=== PATIENT | female | born 1965 | race Hispanic/Latino ===

== ENCOUNTER 2024-12-02 02:12 | Inpatient (IN) | payer SELFPAY ==
[2024-12-02] VITALS (7 sets, daily range): BP systolic 136–168; BP diastolic 81–99; PULSE 73–105; RESP 15–18; TEMP 97.8–99.2; O2SAT 92–99
[~2024-12-02] VITALS: Ht 152.4 cm; Wt 104.3 kg
[2024-12-02] MEDS ORDERED: FAMOTIDINE 20 MG/2 ML VIAL IV ONE (02:43)
[2024-12-02] MEDS ORDERED: ONDANSETRON HCL INJ 2MG/ML 2ML 2 MG/ML VIAL ONE (02:43)
[2024-12-02] MEDS: ONDANSETRON HCL INJ 2MG/ML 2ML 2 MG/ML VIAL IV STA ×2 (02:53→03:24)
[2024-12-02] MEDS: FAMOTIDINE 20 MG/2 ML VIAL IV STA (02:58)
[2024-12-02] MEDS ORDERED: KETOROLAC TROMETHAMINE 30 MG/ML VIAL ONE (03:14)
[2024-12-02] MEDS ORDERED: Morphine 4mg INJECTION 4 MG/ML INJ IV PRN (03:30)
[2024-12-02] MEDS: KETOROLAC TROMETHAMINE 30 MG/ML VIAL IV STA (03:32)
[2024-12-02] MEDS: SODIUM CHLORIDE 0.9% 1000ML 1,000 ML IV ONE (03:44)
[2024-12-02] MEDS ORDERED: SODIUM CHLORIDE FLUSH 10 ML SYR INJ PRN (06:30)
[2024-12-02] MEDS ORDERED: DOCUSATE SODIUM 100 MG CAP PO PRN (08:45)
[2024-12-02] MEDS ORDERED: SIMETHICONE 80 MG CHEW PO PRN (08:45)
[2024-12-02] MEDS ORDERED: ALBUTEROL/IPRATROPIUM 3 ML NEB NEB PRN (08:45)
[2024-12-02] MEDS ORDERED: MELATONIN 3 MG TAB PO PRN (08:45)
[2024-12-02] MEDS: SENNOSIDES 8.6 MG TAB PO SCH (09:00)
[2024-12-02 09:36] LABS: BASOPHILS % 0.3 % (0.0-1.0); EOSINOPHILS % 0.4 % (0.0-6.0); HEMATOCRIT 41.6 % (34.2-44.1); HEMOGLOBIN 12.7 g/dL (12.0-16.0); LYMPHOCYTES # (AUTO) 2.1 (1.0-3.2); LYMPHOCYTES % 23.7 % (18.0-39.1); MEAN CORPUSCULAR HGB CONC 30.5 g/dL (31-35); MEAN CORPUSCULAR VOLUME 85.1 fL (81-99); MONOCYTES # (AUTO) 0.6 (0.2-0.8); MONOCYTES % 6.3 % (4.4-11.3); NEUTROPHILS # (AUTO) 6.2 (2.1-6.9); NEUTROPHILS % 69.1 % (38.7-80.0); PLATELET COUNT 238 x10e3/uL (140-360); RED BLOOD COUNT 4.89 x10e6/uL (3.6-5.1); RED CELL DISTRIBUTION WIDTH 13.3 % (11.7-14.4)
[2024-12-02 10:08] LABS: ALBUMIN 3.6 g/dL (3.5-5.0); ANION GAP 14.3 mmol/L (8-16); BILIRUBIN,DIRECT 0.2 mg/dL (0.0-0.5); BILIRUBIN,TOTAL 0.3 mg/dL (0.2-1.2); CALCIUM 9.4 mg/dL (8.4-10.2); CREATININE, SERUM 0.72 mg/dL (0.57-1.11); MAGNESIUM 1.7 MG/DL (1.3-2.1); PHOSPHORUS 4.1 MG/DL (2.3-4.7); POTASSIUM 4.3 mmol/L (3.5-5.1); TOTAL PROTEIN 7.1 g/dL (6.5-8.1)
[2024-12-02 10:17] LABS: CHOL/HDL RATIO 3.7 (3.0-3.6)
[2024-12-02] MEDS: SODIUM CHLORIDE 0.9% 1000ML 1,000 ML IV SCH (10:20)
[2024-12-02] MEDS: FAMOTIDINE 20 MG/2 ML VIAL IV SCH (10:20)
[2024-12-02] MEDS: Morphine 4mg INJECTION 4 MG/ML INJ IV PRN (12:09)
[2024-12-02] MEDS: LABETALOL HCL 5 MG/ML 20ML VIAL IV ONE (15:55)
[2024-12-02] MEDS: ONDANSETRON HCL INJ 2MG/ML 2ML 2 MG/ML VIAL IV PRN (17:43)
[2024-12-03 03:12] VITALS: BP 170/87; PULSE 102; RESP 18; TEMP 98.4; O2SAT 94
[2024-12-03] MEDS: METOPROLOL TARTRATE INJ 1 MG/ML VIAL IV PRN (03:53)
[2024-12-03 05:11] VITALS: BP 118/72; PULSE 90
[2024-12-03 08:35] VITALS: BP 137/90; PULSE 86; RESP 20; TEMP 98.6; O2SAT 95
[2024-12-03] MEDS ORDERED: METFORMIN HCL500 MG PO (13:46)
[2024-12-03] MEDS ORDERED: LIPITOR20 MG PO (13:46)
[2024-12-03] MEDS ORDERED: LISINOPRIL-HCT1 EACH (13:47)
[2024-12-03 16:20] VITALS: BP 174/90; PULSE 92; RESP 20; TEMP 99; O2SAT 95
[2024-12-03] MEDS: PROMETHAZINE 12.5MG/ NACL 0.9% 12.5 MG/50 ML BAG IV PRN (16:57)
[2024-12-03 20:00] VITALS: BP 174/90; PULSE 92; RESP 20; TEMP 99; O2SAT 95
[2024-12-04] VITALS (8 sets, daily range): BP systolic 115–148; BP diastolic 68–91; PULSE 79–94; RESP 17–19; TEMP 97.8–98.6; O2SAT 95–100
[2024-12-04 07:05] LABS: BASOPHILS # (AUTO) 0.1 (0.0-0.1); BASOPHILS % 0.6 % (0.0-1.0); EOSINOPHILS # (AUTO) 0.3 (0.0-0.4); EOSINOPHILS % 2.7 % (0.0-6.0); HEMATOCRIT 45.5 % (34.2-44.1); HEMOGLOBIN 13.7 g/dL (12.0-16.0); LYMPHOCYTES # (AUTO) 3.5 (1.0-3.2); LYMPHOCYTES % 32.6 % (18.0-39.1); MEAN CORPUSCULAR HEMOGLOBIN 25.6 pg (28-32); MEAN CORPUSCULAR HGB CONC 30.1 g/dL (31-35); MONOCYTES # (AUTO) 0.7 (0.2-0.8); MONOCYTES % 6.3 % (4.4-11.3); NEUTROPHILS # (AUTO) 6.2 (2.1-6.9); NEUTROPHILS % 57.6 % (38.7-80.0); PLATELET COUNT 259 x10e3/uL (140-360); RED BLOOD COUNT 5.35 x10e6/uL (3.6-5.1); RED CELL DISTRIBUTION WIDTH 13.4 % (11.7-14.4); WHITE BLOOD COUNT 10.72 x10e3/uL (4.8-10.8)
[2024-12-04 07:58] LABS: ALBUMIN 3.6 g/dL (3.5-5.0); ANION GAP 13.9 mmol/L (8-16); BILIRUBIN,TOTAL 0.5 mg/dL (0.2-1.2); CALCIUM 9.3 mg/dL (8.4-10.2); CREATININE, SERUM 0.77 mg/dL (0.57-1.11); POTASSIUM 3.9 mmol/L (3.5-5.1); TOTAL PROTEIN 7.3 g/dL (6.5-8.1)
[2024-12-05 00:59] VITALS: BP 109/59; PULSE 75; RESP 18; TEMP 98.3; O2SAT 98
[2024-12-05 04:32] VITALS: BP 121/66; PULSE 70; RESP 18; TEMP 97.9; O2SAT 100
[2024-12-05 08:31] VITALS: BP 121/66; PULSE 70; RESP 18; TEMP 97.9; O2SAT 100
[2024-12-05 08:49] VITALS: BP 131/78; PULSE 77; RESP 20; TEMP 97.9; O2SAT 100
[2024-12-05] MEDS ORDERED: SENOKOT8.6 MG PO (10:48)
[2024-12-05] MEDS ORDERED: TYLENOL325 MG PO (10:48)
[2024-12-05] MEDS ORDERED: CEPHALEXIN500 MG PO (10:48)
[2024-12-05] MEDS ORDERED: METRONIDAZOLE500 MG PO (10:48)
[2024-12-05] MEDS ORDERED: ONDANSETRON ODT4 MG PO (10:48)
[2024-12-05 13:05] VITALS: BP 127/78; PULSE 69; RESP 20; TEMP 99; O2SAT 96
== END 2024-12-05 14:25 | disposition home or self-care (01) | DRG 418 ==
LOC: FSED 03:10 → ERHOLD 06:23 → OBSVTOIN 08:45 → MED/SURG3 16:16
PROVIDERS: ADMIT Internal Medicine; ATTEND Internal Medicine
PROC: 0FT44ZZ Resection of Gallbladder, Percutaneous Endoscopic Approach (ICD-10-PCS; principal; 2024-12-02 13:37)
DX: K80.00 Calculus of gallbladder with acute cholecystitis without obstruction (principal); E66.01 Morbid (severe) obesity due to excess calories; Z68.41 Body mass index [BMI] 40.0-44.9, adult; K76.0 Fatty (change of) liver, not elsewhere classified; I10 Essential (primary) hypertension; E78.5 Hyperlipidemia, unspecified; K52.9 Noninfective gastroenteritis and colitis, unspecified; R73.03 Prediabetes; R53.81 Other malaise; Z90.710 Acquired absence of both cervix and uterus; Z79.84 Long term (current) use of oral hypoglycemic drugs
CPT/HCPCS: 36415; 74176; 76705; 78227; 80048; 80053; 80061; 80076; 81003; 82553; 82948; 83036; 83735; 84100; 84484; 85025; 88304; 93005; 99283; A9537; J1885; J2270; J2405; J2543; J2550; J7030